=== PATIENT | male | born 1980 | race Caucasian/White ===

== ENCOUNTER 2019-09-04 13:15 | Emergency (ER) | payer MEDICAID ==
[~2019-09-04] VITALS: Ht 180.3 cm; Wt 106.6 kg
[2019-09-04 13:24] VITALS: Ht 180.3 cm; Wt 106.6 kg
[2019-09-04 14:56] VITALS: BP 110/72
== END 2019-09-04 14:56 | disposition home or self-care (01) ==
LOC: ED 13:15
DX: J10.1 Influenza due to other identified influenza virus with other respiratory manifestations (principal); R11.2 Nausea with vomiting, unspecified; R03.0 Elevated blood-pressure reading, without diagnosis of hypertension; Z88.0 Allergy status to penicillin
CPT/HCPCS: 87804; J1885; Q0162